=== PATIENT | female | born 1985 | race Caucasian/White ===

== ENCOUNTER 2017-01-25 12:41 | Emergency (ER) | payer BC ==
--- NOTE | 2017-01-25 13:01 | EDM.PDOC ---
ED HPI GENERAL MEDICAL PROBLEM - General Chief Complaint: General Stated Complaint: HEAD PAIN Time Seen by Provider: 01/25/17 12:58 - History of Present Illness INITIAL COMMENTS - FREE TEXT/NARRATIVE: 31-year-old female presents emergency room for second opinion for facial and sinus pain. Patient's had worsening symptoms over the last 9 or 10 days. She has right sided facial pain and some neck discomfort as well the patient has problems with recurrent sinus infections usually wine each time this year last year she did not have one it's probably been 2 years since she's been treated with antibiotics. She has not had any fevers or chills. This is acting very much like prior sinus infections. The patient was seen in the clinic discharged with antibiotics and told to return to emergency room if not better in 2 days as it might be meningitis or a head bleed. Head Pain Score (Numeric/FACES): 5 - Related Data Allergies Allergy/AdvReac Type Severity Reaction Status Date / Time No Known Allergies Allergy Verified 01/25/17 12:54 Home Meds: Home Meds Amoxicillin/Potassium Clav [Augmentin 875-125 Tablet] 1 each PO Q12H #20 tablet 01/25/17 [Rx] Past Medical History - Past Surgical History Female Surgical History: Reports: Section Social & Family History - Tobacco Use Smoking Status *Q: Never Smoker - Caffeine Use Caffeine Use: Reports: Coffee, Energy Drinks, Soda, Tea - Recreational Drug Use Recreational Drug Use: No ED ROS GENERAL - Review of Systems Review Of Systems: See Below Constitutional: Reports: No Symptoms HEENT: Reports: Rhinitis, Sinus Problem Respiratory: Reports: No Symptoms Cardiovascular: Reports: No Symptoms GI/Abdominal: Reports: No Symptoms Neurological: Reports: No Symptoms ED EXAM, GENERAL - Physical Exam Exam: See Below Exam Limited By: No Limitations General Appearance: Alert, No Apparent Distress, Other (Vital signs show mild tachycardia she is afebrile) Eye Exam: Bilateral Eye: EOMI, Normal Inspection, PERRL Ears: Normal External Exam, Normal Canal, Hearing Grossly Normal, Normal TMs Nose: Normal Inspection, Other (Mucosal irritation is present with some mild erythema and thick nasal discharge off color. Sinus percussion is negative on the left side she has some mild to moderate discomfort over the right maxillary sinus marked discomfort over the right frontal sinus ethmoid sinuses are tender as well) Throat/Mouth: Normal Inspection, Normal Lips, Normal Teeth, Normal Gums, Normal Oropharynx, Normal Voice, No Airway Compromise Head: Atraumatic, Normocephalic Neck: Normal Inspection, Supple, Full Range of Motion, Lymphadenopathy (R) ( Adenopathy noted behind the angle of the right jaw), Other ( she has some mild right-sided paraspinous muscle discomfort no midline discomfort no nuchal rigidity good range of motion ). No: Limited Range of Motion Respiratory/Chest: No Respiratory Distress, Lungs Clear, Normal Breath Sounds Cardiovascular: Normal Peripheral Pulses, Regular Rate, Rhythm, No Edema Course - Vital Signs Last Recorded V/S: Last Vital Signs Temp 37.0 C 01/25/17 12:48 Pulse 114 H 01/25/17 12:48 Resp 20 01/25/17 12:48 BP 134/100 H 01/25/17 12:48 Pulse Ox 99 01/25/17 12:48 - Re-Assessments/Exams Free Text/Narrative Re-Assessment/Exam: 01/25/17 13:39 Discussed the pros and cons of imaging. The patient would like to defer from getting CTs at this point as she is convinced sinus infection I think this is reasonable given her presentation typical history and exam. However we did discuss in detail the pros and cons of getting CTs and she would like to hold off at this point. Departure - Departure Time of Disposition: 13:28 Disposition: Home, Self-Care 01 Clinical Impression: Acute frontal sinusitis Qualifiers: Recurrence: not specified as recurrent Qualified Code(s): J01.10 - Acute frontal sinusitis, unspecified - Discharge Information Prescriptions: Amoxicillin/Potassium Clav [Augmentin 875-125 Tablet] 1 each PO Q12H #20 tablet Referrals: PCP,None [Primary Care Provider] - Forms: ED Department Discharge Additional Instructions: Return to the emergency room with any questions problems or worsening symptoms. You have been started on Augmentin, this is an antibiotic for your sinus infection take one twice daily until all gone this should last you 10 days. Try loratadine, or Claritin, 10 mg daily. Try a sinus flush system as we discussed 3-4 times a day until better and then continue twice daily for at least a week after symptoms resolve. The [facility] med system works very well. Loratadine 10 mg a day may be helpful as well.
== END 2017-01-25 13:38 | disposition home or self-care (01) ==
LOC: JD.ED 12:41
DX: J01.10 Acute frontal sinusitis, unspecified (principal)
CPT/HCPCS: 99283